=== PATIENT | male | born 1930 | race Two or more races ===

== ENCOUNTER 2017-01-04 14:36 | Inpatient (IN) | payer MEDICARE ==
[~2017-01-04] VITALS: Ht 167.6 cm; Wt 63.5 kg
[2017-01-04 15:37] LABS: Basophils # (auto) 0 uL; Basophils % (auto) 0.3 % (0.0-2.0); Eosinophils # (auto) 0.1 uL; Eosinophils % (auto) 1.7 % (0.0-7.0); Hematocrit 28.9 % (41.0-53.0); Hemoglobin 9.9 g/dL (13.5-17.5); Lymphocytes # (auto) 0.7 uL; Lymphocytes % (auto) 11.2 % (10.0-50.0); Mean Corpuscular Hemoglobin 31.4 pg (28.0-32.0); Mean Corpuscular Hgb Conc. 34.3 g/dL (32.0-36.0); Mean Corpuscular Volume 91.5 fL (80.0-100.0); Mean Platelet Volume 9.5 fL (7.4-10.4); Monocytes # (auto) 0.5 uL; Monocytes % (auto) 8.2 % (0.0-12.0); Neutrophils % (auto) 78.6 % (37.0-80.0); Platelet Count (auto) 184 10^3/uL (140-450); Red Cell Distribution Width 14.8 % (11.6-16.0); White Blood Cell 6.4 10^3/uL (4.4-10.8)
[2017-01-04 15:53] LABS: Anion Gap 12 (5-15); Aspartate Aminotransferase 10 U/L (15-37); BUN/Creatinine Ratio 20.8; Blood Urea Nitrogen 37 mg/dL (7-18); Calcium 8.5 mg/dL (8.5-10.1); Carbon Dioxide 21 mmol/L (21-32); Chloride 111 mmol/L (98-107); GFR African American 47 mL/min; GFR Non-African American 39 mL/min; Glucose 116 mg/dL (74-106); Potassium 4.1 mmol/L (3.5-5.1); Sodium 144 mmol/L (136-145)
[2017-01-04 15:58] LABS: Alkaline Phosphatase 77 U/L (45-117); Bilirubin, Total 0.3 mg/dL (0.2-1.0)
[2017-01-04 16:04] LABS: B-Type Natriuretic Peptide 236.95 pg/mL (0-100); Temperature: 23.4 C (20.0-25.0)
[2017-01-04] MEDS ORDERED: HYDROcodone-ACET 5/325MG TAB PO PRN (17:00)
[2017-01-04] MEDS ORDERED: ONDANSETRON HCL 4 MG/2 ML VIAL IV PRN (17:00)
[2017-01-04] MEDS ORDERED: cefTRIAXone 1GM/50ML D5W 50 ML IV ONE (17:00)
[2017-01-04] MEDS ORDERED: MORPHINE SULF INJ 2 MG/ML SYRINGE 1ML IV PRN (17:00)
[2017-01-04] MEDS ORDERED: [UNRECOGNIZED DRUG - CODE] PO (17:12)
[2017-01-04] MEDS ORDERED: DICL-176 PO (17:13)
[2017-01-04] MEDS ORDERED: MIRT45TA3 PO (17:13)
[2017-01-04] MEDS ORDERED: AML5T PO (17:14)
[2017-01-04] MEDS ORDERED: GEMF600T PO (17:15)
[2017-01-04] MEDS ORDERED: OMEG100062 PO (17:16)
[2017-01-04] MEDS ORDERED: LOR05T PO (17:17)
[2017-01-04] MEDS: SODIUM CHLORIDE 0.9% 1,000 ML IV SCH (17:58)
[2017-01-04 18:21] LABS: Urine RBC None Seen /hpf (0 - 3)
[2017-01-04 18:44] LABS: Urine Bilirubin Negative (Negative); Urine Blood Negative /uL (Negative); Urine Color Yellow (Yellow); Urine Glucose Normal (Normal); Urine Ketone Negative (Negative); Urine Mucus FEW (None Seen); Urine Nitrite Negative (Negative); Urine Urobilinogen Normal (Negative); Urine pH 5.5 (5.0-8.0)
[2017-01-04 21:08] VITALS: BP_SYST 150; BP_SYST 167; BP_DIAS 61; BP_DIAS 67
[2017-01-04] MEDS: metroNIDAZOLE 500MG/100ML 100 ML IV SCH (22:04)
[2017-01-05 05:38] VITALS: BP 106/44
[2017-01-05] MEDS: metroNIDAZOLE 500MG/100ML 100 ML IV SCH ×3 (06:08→21:32)
[2017-01-05] MEDS: SODIUM CHLORIDE 0.9% 1,000 ML IV SCH ×2 (06:08→19:43)
[2017-01-05 06:49] LABS: Basophils # (auto) 0.1 uL; Basophils % (auto) 0.9 % (0.0-2.0); Eosinophils # (auto) 0.2 uL; Eosinophils % (auto) 3.1 % (0.0-7.0); Hematocrit 30.1 % (41.0-53.0); Hemoglobin 10.1 g/dL (13.5-17.5); Lymphocytes % (auto) 14.7 % (10.0-50.0); Mean Corpuscular Hemoglobin 30.9 pg (28.0-32.0); Mean Corpuscular Hgb Conc. 33.4 g/dL (32.0-36.0); Mean Corpuscular Volume 92.3 fL (80.0-100.0); Mean Platelet Volume 9.6 fL (7.4-10.4); Monocytes # (auto) 0.6 uL; Monocytes % (auto) 8.4 % (0.0-12.0); Neutrophils # (auto) 4.9 uL; Neutrophils % (auto) 72.9 % (37.0-80.0); Platelet Count (auto) 204 10^3/uL (140-450); Red Cell Distribution Width 14.4 % (11.6-16.0); White Blood Cell 6.7 10^3/uL (4.4-10.8)
[2017-01-05 06:55] LABS: INR 1.02 (0.9-1.15); Partial Thromboplastin Time 32.2 sec (22.64-33.71)
[2017-01-05 07:22] LABS: BUN/Creatinine Ratio 20.8; Potassium 4.4 mmol/L (3.5-5.1)
[2017-01-05 09:00] VITALS: BP 129/51
[2017-01-05] MEDS: cefTRIAXone 1GM/50ML D5W 50 ML IV SCH (09:36)
[2017-01-05 13:00] VITALS: BP 152/66
[2017-01-05 17:00] VITALS: BP 133/62
[2017-01-05 22:00] VITALS: BP 125/40
[2017-01-06 05:30] VITALS: BP 116/43
[2017-01-06] MEDS: metroNIDAZOLE 500MG/100ML 100 ML IV SCH (05:47)
[2017-01-06 06:46] LABS: Potassium 4.1 mmol/L (3.5-5.1)
[2017-01-06 06:51] LABS: BUN/Creatinine Ratio 15.3; Calcium 8.3 mg/dL (8.5-10.1)
[2017-01-06 08:00] VITALS: BP 116/43
[2017-01-06 08:41] VITALS: BP 123/50
[2017-01-06] MEDS: SODIUM CHLORIDE 0.9% 1,000 ML IV SCH (09:24)
[2017-01-06] MEDS: cefTRIAXone 1GM/50ML D5W 50 ML IV SCH (09:24)
[2017-01-06 10:53] VITALS: BP 123/70
[2017-01-06 13:47] VITALS: BP 157/52
== END 2017-01-06 12:25 | disposition home or self-care (01) | DRG 699 ==
LOC: ER 14:36 → EDBD 14:36 → TELE 14:37 → CENTRAL 19:15
PROVIDERS: ADMIT Internal Medicine; ATTEND Internal Medicine
DX: N28.1 Cyst of kidney, acquired (principal); E44.1 Mild protein-calorie malnutrition; N17.9 Acute kidney failure, unspecified; E78.5 Hyperlipidemia, unspecified; F03.90 Unspecified dementia, unspecified severity, without behavioral disturbance, psychotic disturbance, mood disturbance, and anxiety; M19.90 Unspecified osteoarthritis, unspecified site; D64.9 Anemia, unspecified; E86.0 Dehydration; I12.9 Hypertensive chronic kidney disease with stage 1 through stage 4 chronic kidney disease, or unspecified chronic kidney disease; N18.9 Chronic kidney disease, unspecified; K57.30 Diverticulosis of large intestine without perforation or abscess without bleeding
CPT/HCPCS: 36415; 71010; 74176; 76705; 80048; 80053; 81001; 83735; 83880; 84484; 85025; 85610; 85730; 87081; 93005; 94761; 96374; 97001; J0696; J3490

== ENCOUNTER 2017-09-15 10:45 | Inpatient (IN) | payer MEDICARE ==
[~2017-09-15] VITALS: Ht 165.1 cm; Wt 45.4 kg
[~2017-09-15 10:45] MED LIST: AML5T PO; DICL-176 PO; DIVA250T6 PO; GEMF600T PO; LORA-654 PO; MIRT45TA3 PO; OMEG100062 PO
[2017-09-15] MEDS ORDERED: SODIUM CHLORIDE 0.9% 1,000 ML IV SCH (14:04)
[2017-09-15 14:12] VITALS: BP 112/53
[2017-09-15] MEDS ORDERED: HYDROcodone-ACET 5/325MG TAB PO PRN (14:15)
[2017-09-15] MEDS ORDERED: VANCOMYCIN 1GM/250ML 250 ML IV ONE (14:15)
[2017-09-15] MEDS ORDERED: VANCOMYCIN PER PHARMACY 0 MG IV SCH (14:15)
[2017-09-15] MEDS ORDERED: PIPERACILLIN-TAZOB 3.375GM 50 ML IV ONE (14:15)
[2017-09-15] MEDS ORDERED: ACETAMINOPHEN 500 MG TAB PO PRN (14:15)
[2017-09-15] MEDS ORDERED: TEMAZEPAM 15 MG CAP PO PRN (14:15)
[2017-09-15] MEDS ORDERED: PROMETHAZINE HCL 25 MG/ML 1ML IV PRN (14:15)
[2017-09-15] MEDS ORDERED: ALBUTEROL SULF 2.5 MG/0.5ML(0.5%) NEB SOLN NEB PRN (14:15)
[2017-09-15] MEDS ORDERED: NITROGLYCERIN 0.4 MG SL TAB SL PRN (14:15)
[2017-09-15] MEDS ORDERED: LORazepam 0.5 MG TAB PO PRN (14:15)
[2017-09-15] MEDS ORDERED: MORPHINE SULF INJ 2 MG/ML SYRINGE 1ML IV PRN ×2 (14:15)
[2017-09-15] MEDS ORDERED: OSELTAMIVIR 30 MG CAP PO ONE (14:30)
[2017-09-15 15:11] LABS: Albumin 2.3 g/dL (3.4-5.0); BUN/Creatinine Ratio 12.5; Bilirubin, Total 1.8 mg/dL (0.2-1.0); Calcium 8.5 mg/dL (8.5-10.1); Total Protein 6.2 g/dL (6.4-8.2)
[2017-09-15] MEDS ORDERED: NOREPINEPHRINE 8 MG/250ML KIT 250 ML IV ONE (15:58)
[2017-09-15] MEDS ORDERED: NOREPINEPHRINE 8 MG/250ML KIT 250 ML IV SCH (15:59)
[2017-09-15] MEDS ORDERED: MIDAZOLAM DRIP 100 mg/100mL NS 100 ML IV SCH (15:59)
[2017-09-15] MEDS ORDERED: PROPOFOL 100 ML IV SCH (15:59)
[2017-09-15] MEDS ORDERED: EPINEPHrine HCL 1 MG/10 ML SYRG IV ONE (16:07)
[2017-09-15] MEDS ORDERED: CALCIUM CHLOR(10%) 100MG/ML 10ML SYRINGE IV ONE (16:07)
[2017-09-15] MEDS ORDERED: DEXTROSE (50%) 50ML SYRG IV ONE (16:07)
[2017-09-15] MEDS ORDERED: D5W/SOD CHL 0.45% 1,000 ML IV SCH (16:15)
[2017-09-15] MEDS ORDERED: POTASSIUM CHL 20MEQ/50ML 50 ML IV SCH (16:15)
[2017-09-15] MEDS ORDERED: SODIUM CHLORIDE 0.9% 500 ML IV ONE (16:15)
[2017-09-15 16:27] LABS: Hematocrit 36.8 % (41.0-53.0); Hemoglobin 11.8 g/dL (13.5-17.5); Mean Corpuscular Hemoglobin 32.9 pg (28.0-32.0); Mean Corpuscular Hgb Conc. 32.2 g/dL (32.0-36.0); Mean Corpuscular Volume 102.4 fL (80.0-100.0); Platelet Count (auto) 165 10^3/uL (140-450); Red Blood Cells 3.59 10^6/uL (4.5-5.90); Red Cell Distribution Width 16.4 % (11.8-14.3); White Blood Cell 15.2 10^3/uL (4.4-10.8)
[2017-09-15 16:33] LABS: Basophils % (manual) 0 (0.0-2.0); Blast Cells 0; Eosinophils % (manual) 0 (0-7); Metamyelocytes % 0; Myelocytes % 0; Promyelocytes % 0; Reactive Lymphocytes 0
[2017-09-15] MEDS ORDERED: GEMFIBROZIL 600 MG TAB PO SCH (17:00)
[2017-09-15 17:53] LABS: Band Neutrophils % (manual) 10; Lymphocytes % (manual) 2 (10.0-50.0); Monocytes % (manual) 1 (0-12)
[2017-09-15] MEDS ORDERED: ALBUTEROL SULF 2.5 MG/0.5ML(0.5%) NEB SOLN NEB SCH (18:00)
[2017-09-15] MEDS ORDERED: IPRATROPIUM BROM 0.5 MG/2.5ML INH SOL NEB SCH (18:00)
[2017-09-15] MEDS ORDERED: PIPERACILLIN-TAZOB 3.375GM 50 ML IV SCH (18:00)
[2017-09-15] MEDS ORDERED: LINEZOLID 600MG/300ML 300 ML IV SCH (22:00)
[2017-09-15] MEDS ORDERED: OSELTAMIVIR 30 MG CAP PO SCH (22:00)
[2017-09-15] MEDS ORDERED: MIRTAZAPINE 30 MG TAB PO SCH (22:00)
[2017-09-16] MEDS ORDERED: ASPirin 81 mg TAB PO SCH (10:00)
[2017-09-16] MEDS ORDERED: ENOXAPARIN SOD 40 MG/0.4 ML SYRINGE SC SCH (10:00)
[2017-09-16] MEDS ORDERED: AZITHROMYCIN 500MG/ 250ML 250 ML IV SCH (10:00)
== END 2017-09-15 16:08 | disposition expired | DRG 871 ==
LOC: ER 10:45 → EDBD 10:45 → TELE 10:46
PROVIDERS: ADMIT Internal Medicine; ATTEND Internal Medicine
PROC: 5A12012 Performance of Cardiac Output, Single, Manual (ICD-10-PCS; principal; 2017-09-15)
DX: A41.9 Sepsis, unspecified organism (principal); G93.41 Metabolic encephalopathy; I63.9 Cerebral infarction, unspecified; R65.21 Severe sepsis with septic shock; J10.00 Influenza due to other identified influenza virus with unspecified type of pneumonia; I24.9 Acute ischemic heart disease, unspecified; I67.2 Cerebral atherosclerosis; L89.899 Pressure ulcer of other site, unspecified stage; F03.90 Unspecified dementia, unspecified severity, without behavioral disturbance, psychotic disturbance, mood disturbance, and anxiety; I12.9 Hypertensive chronic kidney disease with stage 1 through stage 4 chronic kidney disease, or unspecified chronic kidney disease; E78.5 Hyperlipidemia, unspecified; F32.9 Major depressive disorder, single episode, unspecified; F41.9 Anxiety disorder, unspecified; N18.9 Chronic kidney disease, unspecified; Z88.8 Allergy status to other drugs, medicaments and biological substances
CPT/HCPCS: 31500; 36415; 36556; 36600; 51702; 70450; 71045; 73700; 80053; 82805; 82962; 83605; 84484; 85007; 85027; 87040; 87077; 87186; 87400; 87493; 92950; 93005